=== PATIENT | male | born 1950 | race Caucasian/White ===

== ENCOUNTER 2018-01-07 10:58 | Emergency (ER) | payer OTHER, MEDICAID ==
[2018-01-07] MEDS ORDERED: OXYCODONE/APAP 5/325 TAB PO ONE (11:13)
--- NOTE | 2018-01-07 12:10 | EDPHY ---
General Time Seen by Provider: 01/07/18 11:14 Narrative: CHIEF COMPLAINT: Fall, knee pain HISTORY OF PRESENT ILLNESS: Patient presents by EMS and is seen at time arrival. Complains of right knee pain status post fall. He says he tripped into the bathtub on Wednesday. He fell directly on the right knee in a bent position. Since then he has had pain and swelling. Unable to bear weight due to this. He can move his knee but it is very painful. No numbness tingling or weakness. No pain in the right hand, ankle, foot or calcaneus. Worse with palpation. Improved at rest. No head strike or loss of conscious. No chest, back or abdominal pain No other associated complaints or modifying factors. REVIEW OF SYSTEMS: Ten systems reviewed and are negative unless otherwise noted in the HPI PAST MEDICAL HISTORY: Alcohol dependency, hypertension, depression PAST SURGICAL HISTORY: Pacemaker placement SOCIAL HISTORY: Denies tobacco use. Endorses alcohol use. Reportedly homeless FAMILY HISTORY: Noncontributory EXAMINATION: General Appearance: Alert, no distress HEENT: Normocephalic. Atraumatic pupils equal round reactive. No Cotton sign , raccoon eyes or outward signs of trauma Neck: Supple nontender. No signs of trauma. Midline trachea. Painless range of motion all planes Cardiovascular: Symmetric DP pulses 2+. Good signs of perfusion Neurological: A&O, light sensory symmetric, ankle and great toe strength symmetric Skin: Warm and dry, no rash. Mild ecchymosis to the right knee. No laceration or puncture. No cellulitis. No warmth to the joint Extremities: Moderate fusion tenderness of the right knee. Difficult to fully test range of motion but he will bend and straighten the right knee with good evidence of extensor tendon continuity. There is soft compartments of the extremities throughout. There is mild tenderness of the right thigh midshaft. There is no tenderness of the right ankle, calcaneus or midfoot. Psychiatric: Mood and affect normal DIFFERENTIAL DIAGNOSES: Including but not limited to sprain, strain, fracture, dislocation, subluxation , septic joint MDM: 11:10 a.m. Fall 4 days ago with pain in the right knee. There is moderate effusion noted. He has tenderness of the knee as well as the right mid thigh. Unable to fully range the knee due to pain. He has no tenderness distally. Awake alert. No acute distress with vital signs stable. X-rays pending. 12:10 p.m. X-rays have been read by Radiologist. Unremarkable femur film. Possible medial facet fracture of the patella. I have ordered CT scan to further delineate. Patient does have evidence of continuity of the extensor tendon. 12:50 p.m. Notified by radiologist. There is a minimally displaced fracture of the posterior lip of the tibial plateau centrally. Patella is normal in appearance. 1:30 p.m. Case discussed with orthopedist Dr. Torrez. He has reviewed the CT scan and x- ray images. He recommends a straight leg immobilizer, crutches and outpatient follow-up next week. He is also happy to see the patient today. 1:45 p.m. I discussed the case with nurse outreach case manager, Magali. She has visited with the patient and provided multiple means of transportation at no charge him. Patient initially tried to ambulate with his crutches and says he became lightheaded. I have ordered a blood sugar. 2:00 p.m. Fingerstick was reportedly normal at 140. Patient has been drinking juice feeling much better. He has ambulated with crutches. He has instructions to follow up Orthopedics today immediately after this. We discussed rest, ice and elevation. We discussed anti-inflammatories. He also has ED precautions. Discharged home stable condition. SUPERVISION: This patient was independently evaluated without direct involvement of or examination by the attending physician. - Diagnostics Imaging Results: Imaging Impressions Femur X-Ray 01/07/18 11:12 Impression: Nothing acute identified. 2. Right Knee, 5 views including a sunrise view History: Pain post fall Findings: Alignment is anatomic. There is a suprapatellar knee joint effusion. There is equivocally a fracture of the medial posterior patellar facet seen on the sunrise view only. The patella is otherwise intact and normally located. Impression: Possible medial patellar facet articular surface fracture. If confirmation is important, then recommend noncontrast CT. Knee X-Ray 01/07/18 11:12 Impression: Nothing acute identified. 2. Right Knee, 5 views including a sunrise view History: Pain post fall Findings: Alignment is anatomic. There is a suprapatellar knee joint effusion. There is equivocally a fracture of the medial posterior patellar facet seen on the sunrise view only. The patella is otherwise intact and normally located. Impression: Possible medial patellar facet articular surface fracture. If confirmation is important, then recommend noncontrast CT. Extremity CT 01/07/18 12:12 Impression: Nondepressed mid posterior tibial lip fracture. Intact patella. Results called to Jacek Velazquez at 12:49 PM - History Smoking Status: Former smoker - Objective Vital Signs: Initial Vital Signs Temperature (C) 98.8 F 01/07/18 11:10 Heart Rate 90 01/07/18 11:10 Respiratory Rate 16 01/07/18 11:10 Blood Pressure 105/60 01/07/18 11:10 O2 Sat (%) 96 01/07/18 11:10 O2 Delivery Mode Room Air Allergies/Adverse Reactions: No Allergies Allergy (Unknown, Verified 07/24/12 19:38) Home Medications: Medication Instructions Recorded Acetamn/Diphenhydramine 500/25 2 each PO HS PRN 12/18/11 [Tylenol PM (*)] Lisinopril [Zestril 10 mg (*)] 10 mg PO HS 11/17/14 Sertraline HCl [Zoloft 50mg (*)] 50 mg PO DAILY 11/17/14 Warfarin Sodium [Coumadin 5MG (*)] 5 mg PO Q2D 11/17/14 Warfarin Sodium [Coumadin 5MG (*)] 7.5 mg PO Q2D 11/17/14 traZODone [traZODONE 100MG (*)] 150 mg PO HS 11/17/14 Folic Acid [Folic Acid 1 MG (*)] 1 mg PO DAILY #0 tab 11/27/14 Multivitamins [Multivitamin (*)] 1 each PO DAILY #0 tab 11/27/14 Thiamine HCl [Vitamin B-1] 100 mg PO DAILY #0 tab 11/27/14 chlordiazePOXIDE [Librium 25 mg 25 - 50 mg PO Q4 PRN #0 cap 11/27/14 (*)] oxyCODONE HCL/ACETAMINOPHEN 1 each PO Q4-6PRN PRN #7 tablet 01/07/18 [Percocet 5-325 mg Tablet] Laboratory Results: 01/07/18 14:24 POC Glucose 141 mg/dL H mg/dL (70-100) Medications Given: Discontinued Medications Oxycodone/Acetaminophen (Percocet 5/325) 2 tab PO EDNOW ONE Stop: 01/07/18 11:14 Last Admin: 01/07/18 11:26 Dose: 2 tab Point of Care Test Results: Chemistry 01/07/18 14:24 POC Glucose 141 mg/dL H mg/dL (70-100) Departure - Departure Disposition: Home, Routine, Self-Care Clinical Impression: Posterior tibial plateau fracture Qualifiers: Encounter type: initial encounter Fracture type: closed Laterality: right Qualified Code(s): S82.141A - Displaced bicondylar fracture of right tibia, initial encounter for closed fracture Right knee sprain Qualifiers: Encounter type: initial encounter Involved ligament of knee: unspecified ligament Qualified Code(s): S83.91XA - Sprain of unspecified site of right knee , initial encounter Condition: Good Instructions: Leg Fracture (ED) Additional Instructions: 1. Medications as discussed as needed, including ibuprofen 600mg every 8 hours as needed. Do not take in conjunction with anticoagulants or other NSAIDs 2. Follow up with Orthopedics for definitive care 3. Rest, ice and elevation often. Nonweightbearing without your immobilizer and crutches 4. ED precautions as discussed for worsening pain, redness, fever, changes in range of motion, changes in sensation Referrals: Bentley Torrez MD [Medical Doctor] - As per Instructions Prescriptions: oxyCODONE HCL/ACETAMINOPHEN [Percocet 5-325 mg Tablet] 1 each PO Q4-6PRN PRN #7 tablet PRN Reason: Pain, Breakthrough
[2018-01-07 14:40] VITALS: BP 123/76
--- NOTE | 2018-01-07 15:29 | ASMTCMCOM ---
CM Note CM Note Notes: CM asked to assist patient with transportation to [facility] for Orthopedics for a drop in appointment with Dr. Torrez. Patient tells me he will likely be taking an Uber to a hotel for the night as he has been staying at [facility] [employer] while he waits for his "condo to be ready". He has a small suitcase, bag, and box of belongings with him that have been tagged and given to security. I have provided a voucher to patient so he can go directly to Dr. Torrez's office on [address]. Patient confirms that he will stop back at the [facility] [employer] after this appointment (via an Uber) to machine pecan picker his belongings before getting a hotel room. Date Signed: 01/07/2018 03:20 PM Electronically Signed By:Magali Lee RN
== END 2018-01-07 14:40 | disposition home or self-care (01) ==
LOC: EDUNIT#
DX: S82.141A Displaced bicondylar fracture of right tibia, initial encounter for closed fracture (principal); S83.91XA Sprain of unspecified site of right knee, initial encounter; R42 Dizziness and giddiness; W18.2XXA Fall in (into) shower or empty bathtub, initial encounter; Y93.E1 Activity, personal bathing and showering; Y92.59 Other trade areas as the place of occurrence of the external cause; Y99.8 Other external cause status; Z87.891 Personal history of nicotine dependence
CPT/HCPCS: 73551; 73564; 73700; 99284; L1830